=== PATIENT | female | born 1960 | race Caucasian/White ===

== ENCOUNTER 2022-05-26 09:14 | Outpatient (CLI) | payer OTHER | END 2022-05-26 09:46 | disposition home or self-care (01) | LOC: RAD 09:14 | DX: K57.90 Diverticulosis of intestine, part unspecified, without perforation or abscess without bleeding (principal); Z12.31 Encounter for screening mammogram for malignant neoplasm of breast; Z13.220 Encounter for screening for lipoid disorders; Z13.1 Encounter for screening for diabetes mellitus; Z12.11 Encounter for screening for malignant neoplasm of colon; Z13.29 Encounter for screening for other suspected endocrine disorder ==

== ENCOUNTER → 2023-09-13 09:43 | Outpatient (CLI) | payer OTHER ==
[~2023-09-13 09:43] MED LIST: CELEBREX50 MG
[2023-09-13 10:51] LABS: URINE APPEARANCE Clear; URINE BILIRRUBIN Negative (NEGATIVE); URINE BLOOD Negative; URINE COLOR Yellow; URINE GLUCOSE Negative (NEGATIVE); URINE LEUKOCYTE Moderate; URINE NITRATE Negative; URINE PROTEIN Negative (NEGATIVE)
[2023-09-13 10:53] LABS: URINE BACTERIA 177.6 uL (0.0-1933); URINE EPITHELIAL CELLS 4.9 uL (0.0-38.8); URINE RBC 4.1 uL (0.0-20.8); URINE WBC 1070.5 uL (0.0-23.2)
[2023-09-13 11:09] LABS: HEMATOCRIT 38.5 % (36.0-45.00); HEMOGLOBIN 12.8 g/dL (12.0-15.00); MEAN CELL VOLUME 84.8 fL (80.00-100.00); MEAN CORPUSCULAR HEMOGLOBIN 28.1 pg (27.00-32.0); MEAN CORPUSCULAR HGB CONC 33.2 g/dl (32.0-36.0); PLATELET COUNT 323 K/uL (150-450); RED BLOOD COUNT 4.54 M/uL (4.00-6.00); RED CELL DISTRIBUTION WIDTH 14.1 % (11.5-14.5)
[2023-09-13 11:47] LABS: ALBUMIN 3.9 gm/dL (3.4-5.0); BILIRUBIN TOTAL 0.59 mg/dL (0.3-1.2); BILIRUBIN,CONJUGATED 0.14 mg/dL (0.0-0.2); BILIRUBIN,UNCONJUGATED 0.45 mg/dL (0.0-0.6); CALCIUM 9.5 mg/dL (8.5-10.1); CHOL HDL RATIO 3.6 (0-5.0); CREATININE SERUM 0.86 mg/dL (0.55-1.02); GFR 66.64; GLOBULINA 3.3 G/DL (2.4-3.5); POTASSIUM 4.2 mEq/L (3.5-5.1); T4 TOTAL 8.56 UG/DL (4.8-13.9); TOTAL PROTEIN 7.2 gm/dL (6.4-8.2); TSH 0.993 uIU/mL (0.358-3.74)
== END | disposition home or self-care (01) ==
LOC: LAB 09:43
PROVIDERS: ATTEND Internal Medicine Pulmonary Disease
DX: E78.00 Pure hypercholesterolemia, unspecified (principal); N39.0 Urinary tract infection, site not specified; R73.9 Hyperglycemia, unspecified; R94.5 Abnormal results of liver function studies; R05.8 Other specified cough

== ENCOUNTER → 2024-04-20 09:01 | Outpatient (CLI) | payer OTHER ==
[2024-04-20 09:37] LABS: HEMATOCRIT 38.4 % (36.0-45.00); HEMOGLOBIN 13.2 g/dL (12.0-15.00); MEAN CELL VOLUME 83.3 fL (80.00-100.00); MEAN CORPUSCULAR HEMOGLOBIN 28.6 pg (27.00-32.0); MEAN CORPUSCULAR HGB CONC 34.3 g/dl (32.0-36.0); PLATELET COUNT 303 K/uL (150-450); RED CELL DISTRIBUTION WIDTH 13.9 % (11.5-14.5)
[2024-04-20 09:41] LABS: ERYTHROCYTE SEDIMENTATION RATE 14 mm/hr
[2024-04-20 10:06] LABS: URINE APPEARANCE Clear; URINE BILIRRUBIN Negative (NEGATIVE); URINE BLOOD Negative; URINE COLOR Yellow; URINE GLUCOSE Negative (NEGATIVE); URINE LEUKOCYTE Small; URINE NITRATE Negative; URINE PROTEIN Negative (NEGATIVE); URINE UROBILINOGEN 0.2 E.U./dl
[2024-04-20 10:10] LABS: URINE EPITHELIAL CELLS 38.3 uL (0.0-38.8); URINE RBC 6.2 uL (0.0-20.8); URINE WBC 214.2 uL (0.0-23.2)
[2024-04-20 10:45] LABS: BILIRUBIN TOTAL 0.49 mg/dL (0.3-1.2); CALCIUM 9.5 mg/dL (8.5-10.1); CHOL HDL RATIO 4.1 (0-5.0); CREATININE SERUM 0.84 mg/dL (0.55-1.02); GFR 68.48; GLOBULINA 3.5 G/DL (2.4-3.5); POTASSIUM 4.3 mEq/L (3.5-5.1); TOTAL PROTEIN 7.5 gm/dL (6.4-8.2); TSH 1.44 uIU/mL (0.358-3.74)
== END | disposition home or self-care (01) ==
LOC: LAB 09:01
PROVIDERS: ATTEND Internal Medicine Pulmonary Disease
DX: R51.9 Headache, unspecified (principal); I10 Essential (primary) hypertension; H40.9 Unspecified glaucoma; Z12.11 Encounter for screening for malignant neoplasm of colon; M79.7 Fibromyalgia; E78.5 Hyperlipidemia, unspecified

== ENCOUNTER → 2024-04-25 | Outpatient (CLI) | payer OTHER ==
[2024-04-25 14:36] LABS: ob NEGATIVE (NEGATIVE)
== END | disposition home or self-care (01) ==
LOC: LAB 14:09
DX: R51.9 Headache, unspecified (principal); I10 Essential (primary) hypertension; H40.9 Unspecified glaucoma; Z12.11 Encounter for screening for malignant neoplasm of colon; M79.7 Fibromyalgia; E78.5 Hyperlipidemia, unspecified

== ENCOUNTER 2024-05-02 15:58 | Outpatient (CLI) | payer OTHER ==
[2024-05-02 17:07] LABS: PH,URINE 5.5 (5.0-8.0); URINE APPEARANCE Cloudy; URINE BILIRRUBIN Negative (NEGATIVE); URINE BLOOD Negative; URINE COLOR Yellow; URINE GLUCOSE Negative (NEGATIVE); URINE KETONE Negative (NEGATIVE); URINE LEUKOCYTE Trace; URINE NITRATE Negative; URINE PROTEIN Negative (NEGATIVE); URINE UROBILINOGEN 0.2 E.U./dl
[2024-05-02 17:10] LABS: URINE BACTERIA 76.8 uL (0.0-1933); URINE EPITHELIAL CELLS 5.8 uL (0.0-38.8); URINE RBC 4.7 uL (0.0-20.8); URINE WBC 4.9 uL (0.0-23.2)
[2024-05-02 17:30] LABS: URINE CAST 0.76 uL (0.0-1.40)
== END 2024-05-02 16:06 | disposition home or self-care (01) ==
LOC: LAB 15:58
DX: N39.0 Urinary tract infection, site not specified (principal)

== ENCOUNTER 2025-07-25 08:41 | Outpatient (CLI) | payer OTHER ==
[2025-07-25 09:29] LABS: BASO % 0.7 % (0.1-1.2); EOS # 0.10 (0.04-0.54); EOS % 1.2 % (0.7-7.0); LYMPH # 2.70 (1.18-3.74); LYMPH % 32.0 % (19.3-53.1); MEAN PLATELET VOLUME 10.00 fl (9.4-12.4); MONO # 0.64 (0.24-0.82); MONO % 7.6 % (4.7-12.5); NEUT # 4.90 (1.56-6.13); NEUT % 58.1 % (34.0-71.1); RED CELL DISTRIBUTION WIDTH 13.2 % (11.6-14.4)
[2025-07-25 09:35] LABS: ERYTHROCYTE SEDIMENTATION RATE 11 mm/hr (0-30)
[2025-07-25 09:43] LABS: URINE APPEARANCE Cloudy; URINE BACTERIA 923.8 uL (0.0-1933); URINE BILIRRUBIN Negative (NEGATIVE); URINE BLOOD Negative; URINE COLOR Dark Yellow; URINE EPITHELIAL CELLS 72.6 uL (0.0-38.8); URINE GLUCOSE Negative (NEGATIVE); URINE KETONE Negative (NEGATIVE); URINE LEUKOCYTE Moderate; URINE NITRATE Negative; URINE PROTEIN Trace (NEGATIVE); URINE RBC 3.8 uL (0.0-20.8); URINE UROBILINOGEN 1.0 E.U./dl; URINE WBC 122.7 uL (0.0-23.2)
[2025-07-25 09:46] LABS: URINE CAST 1.02 uL (0.0-1.40)
[2025-07-25 09:51] LABS: TYPE CELLS SQUAMOUS; URINE MUCUS MODERATE
[2025-07-25 10:20] LABS: ALT/SGPT 22.0 U/L (12-78); AST/SGOT 14.0 U/L (15-37); BILIRUBIN TOTAL 0.59 mg/dL (0.3-1.2); BUN CREA RATIO 18.0 (7.0-25.0); CHOL HDL RATIO 3.8 (0-5.0); CREATININE SERUM 0.96 mg/dL (0.55-1.02); GFR 58.33; GLOBULINA 3.3 G/DL (2.4-3.5); GLUCOSE FASTING 153.0 mg/dL (65-100); HDL 61.0 mg/dl (40-60); LDL 148.0 mg/dl (0-130); OSMOLALITY SERUM 290.0 MOSM/KG (275-295); TSH 1.41 uIU/mL (0.358-3.74); VLDL 22.0 (0-39)
[2025-07-26 13:05] LABS: ob NEGATIVE (NEGATIVE)
== END 2025-07-25 08:48 | disposition home or self-care (01) ==
LOC: LAB 08:41
PROVIDERS: ATTEND Specialist
DX: R03.0 Elevated blood-pressure reading, without diagnosis of hypertension (principal); R73.03 Prediabetes; Z12.11 Encounter for screening for malignant neoplasm of colon

== ENCOUNTER 2025-07-25 09:11 | Outpatient (CLI) | payer OTHER | END 2025-07-25 09:24 | disposition home or self-care (01) | LOC: RAD 09:11 | PROVIDERS: ATTEND Physical Medicine & Rehabilitation Pediatric Rehabilitation Medicine | DX: M54.17 Radiculopathy, lumbosacral region (principal); R03.0 Elevated blood-pressure reading, without diagnosis of hypertension; R73.03 Prediabetes; Z12.11 Encounter for screening for malignant neoplasm of colon; R60.0 Localized edema | CPT/HCPCS: 72148 ==

== ENCOUNTER → 2025-08-02 09:39 | Outpatient (CLI) | payer OTHER | END | disposition home or self-care (01) | LOC: LAB 09:39 | DX: N39.0 Urinary tract infection, site not specified (principal); E11.8 Type 2 diabetes mellitus with unspecified complications; R80.9 Proteinuria, unspecified ==

== ENCOUNTER 2025-08-02 10:59 | Outpatient (CLI) | payer OTHER | END 2025-08-02 11:01 | disposition home or self-care (01) | LOC: SONOGRAMA 10:59 | PROVIDERS: ATTEND Specialist | DX: N39.0 Urinary tract infection, site not specified (principal); E11.8 Type 2 diabetes mellitus with unspecified complications; R80.9 Proteinuria, unspecified ==